=== PATIENT | female | born 2000 | race Two or more races ===

== ENCOUNTER 2025-02-01 09:39 | Emergency (ER) | payer BC, MEDICAID, SELFPAY ==
[2025-02-01 09:39] VITALS: BMI 18.6
[2025-02-01 09:44] VITALS: BP 126/84; PULSE 94; RESP 18; TEMP 36.9; O2SAT 98
--- NOTE | 2025-02-01 10:22 | PD.EDEAR ---
ED Ear RME/HPI General Chief complaint: Ear Stated complaint: LEFT EAR INFECTION Time Seen by Provider: 02/01/25 09:46 Arrival date/time: 02/01/25 09:39 This is a 24-year-old female that comes in with complaints of otitis externa that was diagnosed approximately 3 days ago. Patient was placed on Ciprodex drops. Patient states that medication is not helping her. Patient states it still hurting her. Patient denies any other complaints. Related Data Home Medications ?Medication ?Instructions ?Recorded ?Confirmed vitamin-ferrous fumarate 1 tab PO QDAY 02/08/22 03/27/24 28 mg iron-folic acid 800 mcg tablet ( Vitamins with Minerals) Previous Rx's ?Medication ?Instructions ?Recorded docusate sodium 100 mg capsule 100 mg PO BID #60 caps 03/28/24 (Colace) ibuprofen 800 mg tablet 800 mg PO Q6H PRN pain #120 tabs 03/28/24 lanolin 50 % topical ointment 1 applic topical TID PRN skin 03/28/24 irritation #15 tubes cephalexin 500 mg capsule 500 mg PO BID #10 caps 04/02/24 Allergies Allergy/AdvReac Type Severity Reaction Status Date / Time No Known Allergies Allergy Verified 02/01/25 09:41 Review of Systems Review of Systems Systems Reviewed: All systems reviewed, normal except as documented Past Medical History Past Medical History NEUROLOGIC: Negative Neurological Disorders CARDIAC: Positive Hypertension (father of pt); Negative Cardiac Disorders, Myocardial Infarction, Cardiac Arrhythmia, Atrial Fibrillation, Angina, Heart Murmur, Coronary Artery Disease, Atherosclerotic Heart Disease, Peripheral Vascular Disease, Hypercholesterolemia, Aneurysm, Congestive Heart Failure, Congenital Heart Disease, Valvular Heart Disease, Rheumatic Fever, Cardiomyopathy, Edema, Pericarditis, Cellulitis, Deep Vein Thrombosis, Hypotension or Varicose Veins RESPIRATORY: Negative Chronic Obstructive Pulmonary Disease (COPD) GASTROINTESTINAL: Negative Gastrointestinal Disorders GENITOURINARY: Negative Genitourinary Disorders or Renal Disease REPRODUCTIVE: Positive Previous Pregnancies; Negative Pelvic Inflammatory Disease MUSCULOSKELETAL: Negative Musculoskeletal Disorders ENDOCRINE: Positive Diabetes Mellitus Type 2 (father of pt); Negative Endocrine Disorders, Diabetes Mellitus Type 1, Hypoglycemia, Gaby's Syndrome, Collier's Disease, Hyperthyroidism, Hypothyroidism, Parathyroid Disease, Pituitary Disease, Systemic Lupus Erythematosus, Syndrome of Inappropriate Antidiuretic Hormone (SIADH), Adrenal Disease or Graves' Disease HEMATOLOGIC: Negative Blood Disorders OTHER HISTORY: Positive Blood Transfusions; Negative Autoimmune Disease, Blood Transfusion Reaction, Anesthesia Reactions, Organ Transplant, MRSA, Chicken Pox, Clostridium Difficile or Cancer Family History FAMILY HISTORY: Positive Family Cardiac Disorders; Negative Family Psychiatric Problems, Family Respiratory Disorders, Family Gastrointestinal Problems, Family Cancer, Family Surgery or Family Anesthesia Reaction Surgical History SURGICAL: Negative Pacemaker, Endocrine Surgery, Ear Surgery, Abdominal Surgery, Nephrectomy, Joint Replacement, Neurologic Surgery, Mastectomy, Lumpectomy, Hysterectomy, Tubal Ligation, Section or Organ Transplant Social History SMOKING STATUS: Never smoker SECOND HAND EXPOSURE: No ED Exam Narrative Physical exam: VITAL SIGNS: Reviewed. GENERAL APPEARANCE: Alert and interactive, follows commands, no acute distress, HEAD AND FACE: Non-traumatic. ENT: PERRL, conjuctiva pink and clear, eyelid no trauma, Mucous membrane moist. tm erythemic bulging, ear canal swollen NECK: Supple, nontender, no nuchal rigidity. CHEST: No tenderness, no crepitus, no paradoxical movement, no retractions. LUNGS: Clear, well ventilated, symmetric, no rales, no wheezing, no rhonchi, no stridor, good breath sounds bilaterally. HEART: Regular rate, regular rhythm, no murmur, no gallops. ABDOMEN: Soft, nondistended, no guarding, nontender, no rebound, no masses, NEUROLOGICAL: Gross motor function intact sensory function intact, Appropriate for age. MUSCULOSKELETAL: low back nontender, full range of motion. EXTREMITIES: No redness no swelling no skin breakdown on bilateral foot and leg. Distal neurovascular status intact bilateral foot SKIN: Color pink, dry, no rash, no lacerations, no abrasions, no contusions. Course Quality Measures none Orders Category Date Time Status Acetaminophen Tab [Tylenol ES Tab] Med 02/01/25 10:22 Discontinued 1,000 mg PO X1 ONE Ibuprofen Tab [Motrin Tab] Med 02/01/25 10:22 Discontinued 800 mg PO X1 ONE cefTRIAXone [Rocephin] 1,000 mg Med 02/01/25 10:22 Discontinued Lidocaine 1% 20 ml [Xylocaine 1% 20 ML] 2.1 ml IM X1 Vital Signs Vital signs: Vital Signs Temperature 98.4 F 02/01/25 09:44 Pulse Rate 94 02/01/25 09:44 Respiratory Rate 18 02/01/25 09:44 Blood Pressure 126/84 02/01/25 09:44 Pulse Oximetry (%) 98 02/01/25 09:44 Oxygen Delivery Method Room Air 02/01/25 09:44 Ear MDM Narrative MDM Narrative:: After looking in the ear it does appear patient has a otitis externa but she likely also has otitis media. Will treat. Patient given a dose of Rocephin here in the emergency room. Will send patient home with Augmentin as well. Instructed patient to take Augmentin and the Ciprodex drops. Patient is told to follow-up with primary provider in 1 to 2 days. Kmak to the emergency room symptoms change or worsen Patient data External records reviewed:: [facility] previous records Clinical information provided by:: patient Social determinants that could affect healthcare access:: none Patient has the following chronic illnesses:: none How is presenting disease/condition affected by chronic disease/condition?: no chronic disease Evaluation data The following diagnostics were reviewed and interpreted by me:: other (specify) (none) Lab and/or radiology exams considered but not ordered:: none Interpretation Summary: see note Medications / Prescriptions Medications or Prescriptions considered but not ordered:: none Medication administrations:: Medication Administration History Discontinued Medications Acetaminophen (Acetaminophen 500 Mg Tablet) 1,000 mg PO X1 ONE Stop: 02/01/25 10:23 Last Admin: 02/01/25 10:36 Dose: 1,000 mg Documented By: NARESH Ceftriaxone Sodium 1,000 mg/ (Lidocaine HCl 2.1 ml) 0 mg IM X1 ONE Stop: 02/01/25 10:23 Last Admin: 02/01/25 10:37 Dose: 1,000 mg Documented By: NARESH Ibuprofen (Ibuprofen Tab 400 Mg Tablet) 800 mg PO X1 ONE Stop: 02/01/25 10:23 Last Admin: 02/01/25 10:36 Dose: 800 mg Documented By: NARESH [facility] Consultations Consultation(s) initiated? (list below): No Diagnosis Ear Differential Diagnosis: otitis externa, otitis media, foreign body in ear, ruptured TM and cerumen impaction Most likely diagnosis given after review of the tests above:: otitis media, otitis externa Admission Indicated Admission indicated?: not indicated Admission Request Was there a request for admission?: No Disposition Plan Disposition Plan: Discharge Discharge Attestation Discharge Attestation: The patient and all family members were given an opportunity to ask questions and understood the discharge instructions. Discharge instructions specifically effects, indications for sooner follow up or return to the emergency department, and the expected course of current diagnosis. Patient condition: Stable Discharge Plan Plan Patient Disposition: HOME (Self Care) Patient condition on transfer: Stable Prescriptions/Referrals Prescriptions/Med Rec: No Action vit-iron fum-folic ac [ Vitamin with Minerals] 28 mg iron- 800 mcg Tablet 1 tab PO QDAY ibuprofen 800 mg tablet 800 mg PO Q6H MDD 4 PRN (Reason: pain) Qty: 120 0RF docusate sodium [Colace] 100 mg capsule 100 mg PO BID Qty: 60 0RF lanolin 50 % ointment 1 applic topical TID PRN (Reason: skin irritation) Qty: 15 0RF cephalexin 500 mg capsule 500 mg PO BID Qty: 10 0RF Problem List Clinical Impression: Otitis externa, Otitis media Patient/Caregiver Discharge Instructions Discharge Activity: activity as tolerated Education Materials: ED Otitis Media Antibiotic ..., ED External Ear Infection (Adult) Additional Instructions: Follow up with primary provider in 1-2 days. Come back to ED if symptoms change or worsen. Continue taking eardrops and oral antibiotic Augmentin. Print Language: Citizen Of [place] Stand Alone Forms: Tracy Award Info., Patient Portal Info Letter PA/METAL FABRICATING INSPECTOR Supervising Physician PA/METAL FABRICATING INSPECTOR Supervising Physician: shane
[2025-02-01] MEDS: ACETAMINOPHEN 500 MG TABLET 1000 MG PO (10:36)
[2025-02-01] MEDS: IBUPROFEN TAB 400 MG TABLET 800 MG PO (10:36)
[2025-02-01] MEDS: cefTRIAXone 1,000 MG, LIDOCAINE 1% 20 ML 2.1 ML IM (10:37)
== END 2025-02-01 10:42 | disposition home or self-care (01) ==
LOC: SERX 10:25
PROVIDERS: Emergency Provider Family Medicine; PCP Family Medicine
DX: H66.92 Otitis media, unspecified, left ear (principal); H60.92 Unspecified otitis externa, left ear
CPT/HCPCS: 96372; 99283; J0696; J3490; A9270

== ENCOUNTER 2025-03-10 11:24 | Outpatient (AMB) | payer BC, MEDICAID, SELFPAY ==
[2025-03-10 11:48] VITALS: BP 126/75; PULSE 96; RESP 18; TEMP 36.4; O2SAT 98; BMI 34.3
--- NOTE | 2025-03-10 11:48 | AMB.OBINITIA ---
Vital Signs 03/10/25 11:48 Height 1.65 m Height Method Stated Weight 93.61 kg Weight Measurement Method Standing Scale BMI 34.3 BP 126/75 Blood Pressure Source Automatic Cuff Blood Pressure Location Left Upper Arm Position Sitting Respiration 18 Pulse 96 Pulse Source Monitor Temp 97.6 F Temp Source Oral Pulse Oximetry (%) 98 Oxygen Delivery Method Room Air Allergies/Home Meds Allergies & Medications Allergies No Known Allergies Allergy (Verified 03/25/25 08:33) Medication Reconciliation aspirin 81 mg tablet 162 mg (2 x 81 mg) PO QDAY 90 days #180 tabs 03/10/25 [Rx Confirmed 03/25/25] Intake Visit Data Collection New Patient or Established: Established Patient (seen at [facility] within 3 years) Reason for Visit:: OBI Seen by Clinical Staff ONLY (RN/MA): No Boiler Service Technician Required: No Do You Feel Safe at Home: Yes Authorities Contacted: N/A PCP or OBGYN visit in last 3 months: Yes Hx Now: Yes Are you currently on any form of Control: No Pain Present Currently: No Pain Scale Used: Dowd-Cavazos/Numerical Pain scale:: 0 Smoking Status Smoking Status: Never smoker Questionnaires Covid-19 Vaccine Questionnaire Has patient been vacinated for Covid-19 Have you been vacinated for Covid-19: Yes PHQ-9 PHQ-2 Over the last 2 weeks, how often have you been bothered by any of the following problems? 1. Little interest or pleasure in doing things: not at all 2. Feeling down, depressed, or hopeless: not at all Total score: 0 PHQ-9 3. Trouble falling or staying asleep, or sleeping too much: Not at all 4. Feeling tired or having little energy: Not at all 5. Poor appetite or overeating: Not at all 6. Feeling bad about yourself - or that you are a failure or have let yourself or your family down: Not at all 7. Trouble concentrating on things, such as reading the newspaper or watching television: Not at all 8. Moving or speaking so slowly that other people could have noticed? - Or the opposite - being so fidgety or restless that you have been moving around a lot more than usual: not at all 9. Thoughts that you would be better off or of hurting yourself in some way: Not at all Total score: 0 If you checked off any problems, how difficult have these problems made it for you to do your work, take care of things at home, or get along with other people?: not difficult at all Source: Developed by Drs. Luis Castro, Anamaria Mtz, Tereso Davalos and colleagues, with an educational makayla from [employer]. Depression screen completed yes Social History Living Situation History Marital Status: Lives With: Family Housing: House Tobacco History Smoking Status: Never smoker Second Hand Smoke Exposure: No Alcohol History Alcohol Intake: Never Domestic Abuse History Do You Feel Safe at Home: Yes History of Present Illness HPI Narrative Ingrid Rubin, a 24-year-old female with a history of chronic hypertension, presents for an initial visit. She reports her last menstrual period was on September 21, 2024. The patient states she was tracking her cycles and took tests, with her last test taken in December. She denies any positive test results at that time. Ingrid's obstetrical history includes two previous vaginal births and one miscarriage at approximately 20 weeks gestation. Her most recent delivery was on March 28, 2024, resulting in an 8-pound term . She denies after this delivery. The patient reports that her blood pressure has been good since her last , and she is no longer taking any blood pressure medications. Ingrid is currently taking vitamins. The patient denies any specific complaints or symptoms related to her current . She describes her two children as good kids who are relatively easy to manage. 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 Obstetric History: - GTPAL: G4 T2 L2 - Current : - Gestational age: 11 weeks by ultrasound - Estimated due date: September 29, 2025 - history: - Delivered a full-term infant on March 28, 2024. weight 8 pounds. Vaginal delivery. - History of one miscarriage at about 20 weeks gestation. - One other vaginal , details not provided. 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 - Education: Enrolled in upcoming [employer] program Immunizations: - Influenza: Patient needs flu vaccine, which will be recommended after 15 weeks of - COVID-19: Patient needs COVID vaccine, which is safe to receive anytime during FIELD MANAGER: Past Medical History Past Medical History: No Hx Neurological Disorders, No Hx Hypothyroidism, No Hx Hyperthyroidism, No Hx Cardiac Disorders, Yes Hx Hypertension (father of pt), No Hx Cancer, No Hx Blood Disorders, No Hx Gastrointestinal Disorders, No Hx Renal Disease, No Hx Deep Vein Thrombosis, No Hx Diabetes Mellitus Type 1, Yes Hx Diabetes Mellitus Type 2 (father of pt), No Hx Tubal Ligation and No Hx Hysterectomy OB Initial Visit OB Flowsheet OB Flowsheet Initial Weight: Not Recorded Date <del>?</del> EGA Weight BP Alb Glu CTX Pres Fundal ht FHR Mov Dilation Station Effacement Hx Notes Visit Note 03/10/25 <del>?</del> 11w 0d 93.61 kg 126/75 OBI. 11w EGA FHR noted 4 wks with labs Menstrual History Menstrual reliability: definite Flow: normal Menstrual regularity: regular Monthly: Yes Age at menarche: 14 On control pills at conception: No OB History : 4 Para: 2 Hx # Pregnancies: 0 Hx Total # of Abortions (Spontaneous & Elective): 1 # of Living Children: 2 Delivery History 1st : Child's name: NA date: 02/12/20 sex: male Gestational age at delivery (weeks): 20 Delivery type: vaginal Delivery complications: DEMISE History of depression before or after : No 2nd : Child's name: NA date: 03/05/22 sex: female Gestational age at delivery (weeks): 37 Delivery type: vaginal weight (lbs): 2721.554 g Delivery complications: NA History of depression before or after : No 3rd : Child's name: NA date: 03/28/24 sex: female Gestational age at delivery (weeks): 40 Delivery type: vaginal weight (lbs): 3628.739 g Delivery complications: NA History of depression before or after : No Infection History & Risk Evaluation History of STDs: none HIV risk evaluation: low risk Hepatitis B risk evaluation: low risk Patient or partner has history of Genital Herpes: No Varicella/chicken pox status: immunized Genetic Screening & History Genetic Screening/Teratology Counseling - Includes patient, baby's father, or anyone in either family with: 1. Patient's age 35 years or older as of estimated date of delivery: No 2. Thalassemia (Salvadorean, German, Mediterranean, or Background); MCV less than 80: No 3. Neural Tube Defect (Meningomyelocele, Spina Bifida, or Anencephaly): No 4. Congenital Heart Defect: No 5. Down Syndrome: No 6. Hans-Sachs (Ashkenazi Jew, Cajun, Kyrgyz Magnet): No 7. Tim Disease (Ashkenazi Jew): No 8. Familial Dysautonomia (Ashkenazi Jew): No 9. Sickle Cell Disease or Trait (): No 10. Hemophilia or other blood disorders: No 11. Muscular Dystrophy: No 12. Cystic Fibrosis: No 13. [place]'s Chorea: No 14. Mental Retardation/Autism: No 15. Other inherited genetic or chromosomal disorder: No 16. Maternal Metabolic Disorder (EG,TYPE 1 Diabetes, PKU): No 17. Patient or baby's father had a child with defects not listed above: No 18. Recurrent loss or a stillbirth: No 19. Medications (including supplements, vitamins, herbs or otc drugs)/illicit/recreational drugs/alcohol since last menstrual period: No 20. Any other: No Infection History 1. Live with someone with TB or exposed to TB: No 2. Rash or viral illness since last menstrual period: No 3. Hepatitis B,C: No Other (see comments) Source: [employer] Office Procedures OB Clinic LOC & Office Proc's Nursing/Assessment Patient Status: Established Patient OB Clinic Nursing Assessment: Medication Reconciliation, Update PMH in EMR and Vital Signs OB Clinic Coordination of Care: Education Complex Pt/Fam, Consent,records obtained, informed consent, Lab and Imaging orders and Staff clarify orders Special Needs: Heart tones Established Patient Charge Established Patient Point Assignment: 110 Established Patient Point Charge: EP Level 3 (80-115) Assessment & Plan Diagnosis / Problem List (1) Supervision of high risk , unspecified, first trimester: Status: Acute (2) Uterine size date discrepancy: Status: Acute Plan Intrauterine , 11 weeks 0 days Plan: - Order initial panel and pre-eclampsia baseline labs - Schedule formal ultrasound in radiology for dating confirmation - Provide genetic screening form for patient consideration - Start aspirin at 13-14 weeks gestation - Continue vitamins Chronic hypertension Plan: - Monitor blood pressure throughout - Baseline pre-eclampsia panel ordered as part of initial labs Immunizations Plan: - Advise COVID-19 vaccine safe at any time during - Recommend delaying flu vaccine until available (typically early April) - Provide letter stating early status and recommendation to receive vaccines after 15 weeks gestation - Instruct patient to obtain vaccines at pharmacy when appropriate
== END 2025-03-10 15:47 | disposition home or self-care (01) ==
LOC: HODSOBC 11:24
PROVIDERS: Supervising Provider Obstetrics & Gynecology; Visit Provider Obstetrics & Gynecology
DX: O09.891 Supervision of other high risk pregnancies, first trimester (principal); O26.841 Uterine size-date discrepancy, first trimester; O10.911 Unspecified pre-existing hypertension complicating pregnancy, first trimester; Z3A.11 11 weeks gestation of pregnancy
CPT/HCPCS: 99213; G0463

== ENCOUNTER → 2025-03-10 | Outpatient (CLI) | payer BC, MEDICAID, SELFPAY ==
--- NOTE | 2025-03-10 16:10 | XR_ITS ---
Examination: Complete OB ultrasound, less than 14 weeks, transabdominal Date and time of exam: March 10, 2025, 1620 hours INDICATIONS: Irregular heavy menses months Technique: Obstetrical ultrasound images less than 14 weeks performed via transabdominal imaging Findings: A normal shaped single intrauterine gestation is present in the uterus. CRL 5.4 cm and corresponds to 12 weeks 0 day gestational age. Cardiac motion 182 bpm Ultrasonographic survey of visible and placental structures unremarkable. Amniotic fluid volume appears appropriate for this estimated gestational age. Right ovary 2.8 cm arterial flow. Left ovary 5.0 cm arterial flow. IMPRESSION: Viable intrauterine gestation 12 weeks 0 days. Recommend follow-up ultrasound to document stability of prominent left ovary.
== END | disposition home or self-care (01) ==
LOC: CDIM 16:04
PROVIDERS: Referring Provider Obstetrics & Gynecology; Visit Provider Obstetrics & Gynecology
DX: O26.849 Uterine size-date discrepancy, unspecified trimester (principal); O09.91 Supervision of high risk pregnancy, unspecified, first trimester; Z3A.12 12 weeks gestation of pregnancy
CPT/HCPCS: 76801

== ENCOUNTER 2025-03-25 08:19 | Outpatient (AMB) | payer BC, MEDICAID, SELFPAY ==
[2025-03-25 08:32] VITALS: BP 121/80; PULSE 103; RESP 17; TEMP 36.7; O2SAT 98; BMI 34.4
--- NOTE | 2025-03-25 08:32 | AMB.OBVISIT ---
Vital Signs 03/25/25 08:32 Height 1.65 m Height Method Measured Weight 93.61 kg Weight Measurement Method Standing Scale BMI 34.4 BP 121/80 Blood Pressure Source Automatic Cuff Blood Pressure Location Right Upper Arm Position Sitting Respiration 17 Pulse 103 H Pulse Source Monitor Temp 98.0 F Temp Source Temporal Artery Scan Pulse Oximetry (%) 98 Oxygen Delivery Method Room Air Allergies/Home Meds Allergies & Medications Allergies No Known Allergies Allergy (Verified 03/25/25 08:33) Medication Reconciliation aspirin 81 mg tablet 162 mg (2 x 81 mg) PO QDAY 90 days #180 tabs 03/10/25 [Rx Confirmed 03/25/25] Intake Visit Data Collection New Patient or Established: Established Patient (seen at [facility] within 3 years) Reason for Visit:: C Consent obtained for Telemed Visit: No Seen by Clinical Staff ONLY (RN/MA): No Carton Wrapper Required: No Do You Feel Safe at Home: Yes Authorities Contacted: N/A PCP or OBGYN visit in last 3 months: Yes Date of Last PCP or OBGYN visit: 03/10/25 Hx Now: Yes Are you currently on any form of Control: No Pain Present Currently: No Pain Scale Used: Dowd-Cavazos/Numerical Pain scale:: 0 Smoking Status Smoking Status: Never smoker Questionnaires Covid-19 Vaccine Questionnaire Has patient been vacinated for Covid-19 Have you been vacinated for Covid-19: Yes PHQ-9 PHQ-2 Over the last 2 weeks, how often have you been bothered by any of the following problems? 1. Little interest or pleasure in doing things: not at all PHQ-9 8. Moving or speaking so slowly that other people could have noticed? - Or the opposite - being so fidgety or restless that you have been moving around a lot more than usual: not at all Source: Developed by Drs. Luis Castro, Anamaria Mtz, Tereso Davalos and colleagues, with an educational makayla from [employer]. Social History Living Situation History Lives With: Family Housing: House Tobacco History Smoking Status: Never smoker Second Hand Smoke Exposure: No Alcohol History Alcohol Intake: Never Domestic Abuse History Do You Feel Safe at Home: Yes ROAD BOSS: Past Medical History Past Medical History: No Hx Neurological Disorders, No Hx Hypothyroidism, No Hx Hyperthyroidism, No Hx Cardiac Disorders, Yes Hx Hypertension (father of pt), No Hx Cancer, No Hx Blood Disorders, No Hx Gastrointestinal Disorders, No Hx Renal Disease, No Hx Deep Vein Thrombosis, No Hx Diabetes Mellitus Type 1, Yes Hx Diabetes Mellitus Type 2 (father of pt), No Hx Tubal Ligation and No Hx Hysterectomy Care OB Visit Log OB Flowsheet Initial Weight: Not Recorded Date <del>?</del> EGA Weight BP Alb Glu CTX Pres Fundal ht FHR Mov Dilation Station Effacement Hx Notes Visit Note 03/10/25 <del>?</del> 11w 0d 93.61 kg 126/75 OBI. 11w EGA FHR noted 4 wks with labs JUAN Calculator Estimated Delivery Date Method Current WG Current Estimate 09/29/25 LMP (Certain) 17w 0d Other Estimates 09/22/25 Ultrasound #1 18w 0d Notes Visit Date: 03/10/25 Last Updated by: Leno Landaverde MD Ultrasound (SunMar 10 2025): - heartbeat: 173 bpm (normal) - Estimated gestational age: 11 weeks 0 days - anatomy: Head and body visualized Office Procedures OB Clinic LOC & Office Proc's Nursing/Assessment Patient Status: Established Patient OB Clinic Nursing Assessment: Medication Reconciliation, Update PMH in EMR and Vital Signs OB Clinic Coordination of Care: Complex Care and Chronic Disease 1-5, Consent,records obtained, informed consent, Education Simp Pt/Fam, 4+ Authorizations needed and Results/Orders obtained Special Needs: Heart tones Established Patient Charge Established Patient Point Assignment: 135 Established Patient Point Charge: EP Level 4 (120-155) Assessment & Plan Diagnosis / Problem List (1) Uterine size date discrepancy: Status: Acute
== END 2025-03-25 09:03 | disposition home or self-care (01) ==
LOC: HODSOBC 08:19
PROVIDERS: Supervising Provider Obstetrics & Gynecology; Visit Provider Obstetrics & Gynecology
DX: O09.892 Supervision of other high risk pregnancies, second trimester (principal); O26.842 Uterine size-date discrepancy, second trimester; Z3A.17 17 weeks gestation of pregnancy
CPT/HCPCS: 99214; G0463

== ENCOUNTER 2025-04-28 15:19 | Outpatient (AMB) | payer BC, MEDICAID, SELFPAY ==
[2025-04-28 15:34] VITALS: BP 119/76; PULSE 104; RESP 20; TEMP 36.3; O2SAT 98; BMI 34.7
--- NOTE | 2025-04-28 15:34 | OBCLNT_ITS ---
Vital Signs 04/28/25 15:34 Height 1.65 m Height Method Stated Weight 94.461 kg Weight Measurement Method Standing Scale BMI 34.7 BP 119/76 Blood Pressure Source Automatic Cuff Blood Pressure Location Left Upper Arm Position Sitting Respiration 20 Pulse 104 H Pulse Source Monitor Temp 97.4 F Temp Source Oral Pulse Oximetry (%) 98 Oxygen Delivery Method Room Air Allergies/Home Meds Allergies & Medications Allergies No Known Allergies Allergy (Verified 04/28/25 15:35) Medication Reconciliation aspirin 81 mg tablet 162 mg (2 x 81 mg) PO QDAY 90 days #180 tabs 03/10/25 [Rx Confirmed 04/28/25] Intake Visit Data Collection New Patient or Established: Established Patient (seen at [facility] within 3 years) Reason for Visit:: CARE Seen by Clinical Staff ONLY (RN/MA): No Barrel And 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 1. Little interest or pleasure in doing things: not at all 2. Feeling down, depressed, or hopeless: not at all Total score: 0 PHQ-9 3. Trouble falling or staying asleep, or sleeping too much: Not at all 4. Feeling tired or having little energy: Not at all 5. Poor appetite or overeating: Not at all 6. Feeling bad about yourself - or that you are a failure or have let yourself or your family down: Not at all 7. Trouble concentrating on things, such as reading the newspaper or watching television: Not at all 8. Moving or speaking so slowly that other people could have noticed? - Or the opposite - being so fidgety or restless that you have been moving around a lot more than usual: not at all 9. Thoughts that you would be better off or of hurting yourself in some way: Not at all Total score: 0 Source: Developed by Drs. Luis Castro, Anamaria Mtz, Tereso Davalos and colleagues, with an educational makayla from [employer]. 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 Medical History Past Medical History: No Hx Neurological Disorders, No Hx Hypothyroidism, No Hx Hyperthyroidism, No Hx Cardiac Disorders, Yes Hx Hypertension (father of pt), No Hx Cancer, No Hx Blood Disorders, No Hx Gastrointestinal Disorders, No Hx Renal Disease, No Hx Deep Vein Thrombosis, No Hx Diabetes Mellitus Type 1, Yes Hx Diabetes Mellitus Type 2 (father of pt), No Hx Tubal Ligation and No Hx Hysterectomy Care OB Visit Log OB Flowsheet Initial Weight: Not Recorded Date -?-?-?-?-?-?-?-?-?-?-?-?- EGA Weight BP Alb Glu CTX Pres Fundal ht FHR Mov Dilation Station Effacement Hx Notes Visit Note 03/10/25 -?-?-?-?-?-?-?-?-?-?-?-?- 11w 0d 93.61 kg 126/75 OBI. 11w EGA FHR noted 4 wks with labs 04/28/25 -?-?-?-?-?-?-?-?-?-?-?-?- 18w 0d 94.461 kg 119/76 164 - She reports feeling movements, described as flickers . - Patient mentions difficulty scheduling her anatomy scan due to conflicts with her school schedule. 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 - No complaints or concerns reported during this visit. - Order AFP test to check for neural tube defects - Schedule early glucose test at 20 week s due to history of high-risk pregnancies - Provide lab order for glucose test to be done in 2 weeks - Follow up in 4 weeks - Cleared patient for N95 mask fitting t est at school - Consider changing ultrasound appointme nt from [place] to [place] for patient convenience JUAN Calculator Estimated Delivery Date Method Current WG Current Estimate 09/29/25 LMP (Certain) 18w 5d Other Estimates 09/22/25 Ultrasound #1 19w 5d Notes Visit Date: 03/10/25 Last Updated by: Leno Landaverde MD Ultrasound (SunMar 10 2025): - heartbeat: 173 bpm (normal) - Estimated gestational age: 11 weeks 0 days - anatomy: Head and body visualized Office Procedures OB Clinic LOC & Office Proc's Nursing/Assessment Patient Status: Established Patient OB Clinic Nursing Assessment: Medication Reconciliation, Update PMH in EMR and Vital Signs OB Clinic Coordination of Care: Complex Care and Chronic Disease 1-5, Consent,records obtained, informed consent, Education Simp Pt/Fam, 1 Ins Authorization, Lab and Imaging orders, Results/Orders obtained and Staff clarify orders Special Needs: Heart tones Established Patient Charge Established Patient Point Assignment: 150 Established Patient Point Charge: EP Level 4 (120-155) Assessment & Plan Diagnosis / Problem List (1) Uterine size date discrepancy: Status: Acute (2) Supervision of high risk , unspecified, first trimester: Status: Acute
== END 2025-04-28 15:47 | disposition home or self-care (01) ==
LOC: HODSOBC 15:19
PROVIDERS: Supervising Provider Obstetrics & Gynecology; Visit Provider Obstetrics & Gynecology
DX: O09.892 Supervision of other high risk pregnancies, second trimester (principal); O26.842 Uterine size-date discrepancy, second trimester; Z3A.18 18 weeks gestation of pregnancy
CPT/HCPCS: 99214; G0463

== ENCOUNTER → 2025-05-14 | Outpatient (CLI) | payer BC, MEDICAID, SELFPAY ==
[2025-05-14 09:19] LABS: Basophils # (Auto) 0.0 Thou/mm3 (0.0-0.2); Basophils % (Auto) 0 % (0-2.5); Eosinophils # (Auto) 0.1 Thou/mm3 (0.0-0.5); Eosinophils % (Auto) 2 % (0-10); Hematocrit 35.2 % (36.0-46.0); Hemoglobin 12.4 g/dL (12.0-16.0); Immature Granulocytes Auto 0.03 Thou/mm3 (0.00-0.00); Lymphocytes # (Auto) 1.7 Thou/mm3 (1.0-4.8); Lymphocytes % (Auto) 20 % (10-50); Mean Corpuscular HGB Conc 35.2 g/dl (31.0-37.0); Mean Corpuscular Hemoglobin 31.9 pg (25.0-35.0); Mean Corpuscular Volume 91 fL (80-100); Monocytes # (Auto) 0.4 Thou/mm3 (0.0-0.8); Monocytes % (Auto) 4 % (0-12); Neutrophils # (Auto) 6.5 Thou/mm3 (1.8-7.7); Neutrophils % (Auto) 74 % (37-80); Nucleated Red Blood Cell # 0.00 Thou/mm3 (0.00-0.00); Nucleated Red Blood Cell % 0 /100 WBC (0); Platelet Count 224 Thou/mm3 (140-440); RDW Standard Deviation 42.7 fL (36.4-46.3); Red Blood Count 3.89 Miln/mm3 (4.00-5.20); White Blood Count 8.8 Thou/mm3 (3.6-11.0)
[2025-05-14 09:40] LABS: Glucose,1 Hour PP 50gm Dose 154 mg/dL (80-140)
[2025-05-14 09:48] LABS: Rubella, IgG Antibody Reactive (Immune)
[2025-05-14 09:53] LABS: Alanine Aminotransferase 8 U/L (10-49); Albumin, Serum 3.7 gm/dL (3.5-5.0); Albumin/Globulin Ratio 1.5 (1.2-2.2); Alkaline Phosphatase 49 U/L (46-116); Anion Gap 11 (7-16); Aspartate Amino Transferase 11 U/L (0-34); BUN/Creatinine Ratio 12 Ratio (12-20); Bilirubin,Total 0.3 mg/dL (0.3-1.2); Blood Urea Nitrogen 6 mg/dL (9-23); Calcium 8.8 mg/dL (8.3-10.6); Calcium (Corrected) 9.0 mg/dL (8.5-10.1); Carbon Dioxide 22.5 mMol/L (20.0-31.0); Chloride 106 mMol/L (98-107); Creatinine (Component) 0.5 mg/dL (0.6-1.3); Globulin 2.4 gm/dL (2.3-3.5); Glucose 153 mg/dL (74-106); LDH (Lactate Dehydrogenase) 127 U/L (120-246); Osmolality,Calculated 278 (275-295); Potassium 3.5 mMol/L (3.4-5.1); Sodium 139 mMol/L (136-145); Total Protein 6.1 gm/dL (5.7-8.2); Uric Acid 4.4 mg/dL (3.1-7.8); eGFR > 60 See Note
[2025-05-14 09:58] LABS: Syphilis Nonreactive (Nonreactive)
[2025-05-19 11:18] LABS: HCV RNA, PCR <15 NOT DETECTED IU/mL; Hepatitis B Virus DNA* NOT DETECTED
[2025-05-19 14:12] LABS: HCV RNA, PCR Log IU <1.18 NOT DETECTED Log IU/mL; Hepatitis B DNA PCR NOT DETECTED Log IU/mL; IgG, Serum* 978 mg/dL (600-1640)
== END | disposition home or self-care (01) ==
LOC: COPL 07:27
PROVIDERS: PCP Family Medicine; Referring Provider Obstetrics & Gynecology; Visit Provider Obstetrics & Gynecology
DX: O99.810 Abnormal glucose complicating pregnancy (principal); O09.91 Supervision of high risk pregnancy, unspecified, first trimester; Z3A.00 Weeks of gestation of pregnancy not specified
CPT/HCPCS: 36415; 80053; 81001; 82784; 82950; 83615; 84550; 85025; 86762; 86780; 86850; 86900; 86901; 87086; 87491; 87517; 87522; 87591; 87661

== ENCOUNTER 2025-06-04 11:25 | Outpatient (AMB) | payer BC, MEDICAID, SELFPAY ==
[2025-06-04 11:30] VITALS: BP 135/78; PULSE 99; RESP 18; TEMP 36.2; O2SAT 98; BMI 35.3
--- NOTE | 2025-06-04 11:30 | AMB.OBVISIT ---
Vital Signs 06/04/25 11:30 Height 1.65 m Height Method Stated Weight 96.162 kg Weight Measurement Method Standing Scale BMI 35.3 BP 135/78 H Blood Pressure Source Automatic Cuff Blood Pressure Location Left Upper Arm Position Sitting Respiration 18 Pulse 99 Pulse Source Monitor Temp 97.2 F Temp Source Oral Pulse Oximetry (%) 98 Oxygen Delivery Method Room Air Allergies/Home Meds Allergies & Medications Allergies No Known Allergies Allergy (Verified 06/04/25 11:34) Medication Reconciliation aspirin 81 mg tablet 162 mg (2 x 81 mg) PO QDAY 90 days #180 tabs 03/10/25 [Rx Confirmed 06/04/25] Intake Visit Data Collection New Patient or Established: Established Patient (seen at [facility] within 3 years) Reason for Visit:: OBC Seen by Clinical Staff ONLY (RN/MA): No Funeral Home General Manager Required: No Do You Feel Safe at Home: Yes Authorities Contacted: N/A PCP or OBGYN visit in last 3 months: Yes ([id number]) Date of Last PCP or OBGYN visit: 04/27/25 Hx Now: Yes Are you currently on any form of Control: No Pain Present Currently: No Pain Scale Used: Dowd-Cavazos/Numerical Pain scale:: 0 Smoking Status Smoking Status: Never smoker Immunizations Flu Vaccine in the Last 12 Months: No Flu Vaccine Exclusion Criteria: No Exclusion Criteria Questionnaires Covid-19 Vaccine Questionnaire Has patient been vacinated for Covid-19 Have you been vacinated for Covid-19: No PHQ-9 PHQ-2 Over the last 2 weeks, how often have you been bothered by any of the following problems? 1. Little interest or pleasure in doing things: not at all 2. Feeling down, depressed, or hopeless: not at all Total score: 0 PHQ-9 3. Trouble falling or staying asleep, or sleeping too much: Not at all 4. Feeling tired or having little energy: Not at all 5. Poor appetite or overeating: Not at all 6. Feeling bad about yourself - or that you are a failure or have let yourself or your family down: Not at all 7. Trouble concentrating on things, such as reading the newspaper or watching television: Not at all 8. Moving or speaking so slowly that other people could have noticed? - Or the opposite - being so fidgety or restless that you have been moving around a lot more than usual: not at all 9. Thoughts that you would be better off or of hurting yourself in some way: Not at all Total score: 0 If you checked off any problems, how difficult have these problems made it for you to do your work, take care of things at home, or get along with other people?: not difficult at all Source: Developed by Drs. Luis Castro, Anamaria Mtz, Tereso Davalos and colleagues, with an educational makayla from [employer]. 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 Medical History Past Medical History: No Hx Neurological Disorders, No Hx Hypothyroidism, No Hx Hyperthyroidism, No Hx Cardiac Disorders, Yes Hx Hypertension (father of pt), No Hx Cancer, No Hx Blood Disorders, No Hx Gastrointestinal Disorders, No Hx Renal Disease, No Hx Deep Vein Thrombosis, No Hx Diabetes Mellitus Type 1, Yes Hx Diabetes Mellitus Type 2 (father of pt), No Hx Tubal Ligation and No Hx Hysterectomy Care OB Visit Log OB Flowsheet Initial Weight: Not Recorded Date <del>?</del> EGA Weight BP Alb Glu CTX Pres Fundal ht FHR Mov Dilation Station Effacement Hx Notes Visit Note 03/10/25 <del>?</del> 11w 0d 93.61 kg 126/75 OBI. 11w EGA FHR noted 4 wks with labs 03/25/25 <del>?</del> 13w 1d 93.61 kg 121/80 175 All labs reviewed. No complaints MFM referral started. Return in 4 weeks. 1st trimester precautions 04/28/25 <del>?</del> 18w 0d 94.461 kg 119/76 164 - She reports feeling movements, described as flickers . - Patient mentions difficulty scheduling her anatomy scan due to conflicts with her school schedule. 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 - No complaints or concerns reported during this visit. - Order AFP test to check for neural tube defects - Schedule early glucose test at 20 weeks due to history of high-risk pregnancies - Provide lab order for glucose test to be done in 2 weeks - Follow up in 4 weeks - Cleared patient for N95 mask fitting test at school - Consider changing ultrasound appointment from [place] to [place] for patient convenience 06/04/25 <del>?</del> 23w 2d 96.162 kg 135/78 absent unstable 24 159 active - She reports blood pressure elevation with current reading of 135/78, increased from previous reading of 119/60. - Patient admits to non-adherence with aspirin therapy, stating she did not take aspirin today. - She reports recent exposure to someone with shingles and denies history of chickenpox. - Patient visited [facility] in [place] approximately 2 weeks ago and was told no additional appointment was needed. - She completed glucose testing at [facility] as requested. - Patient reports baby is active. - Monitor blood pressure twice daily; call if it exceeds 160/110 - Take aspirin daily - Hydrate more - Will call the lab to retrieve one-hour glucose tolerance results and get back to patient - If glucose is elevated, will need a 3-hour test - Be careful with diet starting now - Follow up in 4 weeks JUAN Calculator Estimated Delivery Date Method Current WG Current Estimate 09/29/25 LMP (Certain) 24w 0d Other Estimates 09/22/25 Ultrasound #1 25w 0d Notes Visit Date: 06/04/25 Last Updated by: Leno Landaverde MD - Ultrasound (approximately 05/21/2025, [facility]): - heart rate: 159 bpm (normal) - weight: 457 grams (75th percentile) - Cervical length: >3 cm - position: Low-lying Visit Date: 03/10/25 Last Updated by: Leno Landaverde MD Ultrasound (SunMar 10 2025): - heartbeat: 173 bpm (normal) - Estimated gestational age: 11 weeks 0 days - anatomy: Head and body visualized Office Procedures OBC Clinic LOC & Office Proc's Nursing/Assessment Patient Status: Established Patient OB Clinic Nursing Assessment: Medication Reconciliation, Update PMH in EMR and Vital Signs OB Clinic Coordination of Care: Consent,records obtained, informed consent, Lab and Imaging orders, Results/Orders obtained and Staff clarify orders Special Needs: Heart tones Established Patient Charge Established Patient Point Assignment: 95 Established Patient Point Charge: EP Level 3 (80-115) Assessment & Plan Diagnosis / Problem List (1) Abnormal glucose affecting : Status: Acute (2) Uterine size date discrepancy: Status: Acute (3) Supervision of high risk , unspecified, first trimester: Status: Acute Plan Problem List - Hypertension in - Abnormal glucose tolerance test - Exposure to varicella zoster virus Assessment 23-week 2-day 4 para 2011 with elevated blood pressure at 135/78 (previously 119/60) requiring monitoring. One-hour glucose tolerance test result of 153 mg/dL exceeds normal cutoff of 140, indicating abnormal glucose screening. Recent ultrasound demonstrates weight of 457 grams at 75th percentile with normal heart rate of 159 bpm. Cervical length greater than 3 cm indicates low risk for labor. Patient reports recent exposure to shingles but denies history of chickenpox. Laboratory studies from 05/14 show normal liver and kidney function. Plan - Monitor blood pressure twice daily; call if it exceeds 160/110 - Take aspirin daily - Hydrate more - Will call the lab to retrieve one-hour glucose tolerance results and get back to patient - If glucose is elevated, will need a 3-hour test - Be careful with diet starting now - Follow up in 4 weeks 1. Progress Reviewed gestational age (23 weeks 2 days), growth (457 grams, 75th percentile), and heart rate (159 bpm, normal). Planned frequent visits (every 4 weeks, then will increase frequency as progresses). 2. Instructed patient to monitor movements and report decreases immediately. 3. Testing Counseled on routine third-trimester labs per guidelines. Discussed potential need for ultrasound or monitoring based on risk factors. One-hour glucose tolerance test completed with results pending (cutoff 140, previous glucose 153). 4. Preeclampsia Precaution Educated on preeclampsia signs: severe headache, vision changes, right upper quadrant pain, sudden swelling. Advised urgent reporting of symptoms and discussed blood pressure monitoring (currently elevated at 135/78, monitor twice daily, call if exceeds 160/110). 5. Labor Precautions Reviewed labor signs: regular contractions, pelvic pressure, back pain, bleeding, or fluid leakage. Instructed to seek immediate care for these symptoms. Cervix more than 3 cm indicates low risk for labor. 6. Lifestyle and Delivery Preparation Reinforced vitamins (aspirin compliance discussed), nutrition (careful with diet due to glucose concerns), and safe activity. Discussed plan, pain management, and . Advised on labor preparation (e.g., hospital bag) and expectations. 7. Psychosocial Support Assessed emotional well-being and offered resources for mental health or parenting support.
== END 2025-06-04 11:56 | disposition home or self-care (01) ==
LOC: HODSOBC 11:25
PROVIDERS: Supervising Provider Obstetrics & Gynecology; Visit Provider Obstetrics & Gynecology
DX: O09.892 Supervision of other high risk pregnancies, second trimester (principal); O26.842 Uterine size-date discrepancy, second trimester; O13.2 Gestational [pregnancy-induced] hypertension without significant proteinuria, second trimester; O99.810 Abnormal glucose complicating pregnancy; Z3A.23 23 weeks gestation of pregnancy; Z20.828 Contact with and (suspected) exposure to other viral communicable diseases
CPT/HCPCS: 99213; G0463

== ENCOUNTER → 2025-06-30 | Outpatient (CLI) | payer BC, MEDICAID, SELFPAY ==
[2025-06-30 10:04] LABS: Glucose,Fasting Gestational 91 mg/dL (70-120)
[2025-06-30 11:08] LABS: Glucose 1 Hour, Gest 132 mg/dL (50-190)
[2025-06-30 12:24] LABS: Glucose 2 Hour,Gest 102 mg/dL (50-165)
[2025-06-30 13:32] LABS: Glucose 3 Hour, Gest 97 mg/dL (50-145)
== END | disposition home or self-care (01) ==
PROVIDERS: PCP Family Medicine; Referring Provider Obstetrics & Gynecology; Visit Provider Obstetrics & Gynecology
DX: O99.810 Abnormal glucose complicating pregnancy (principal)
CPT/HCPCS: 36415; 82951; 82952

== ENCOUNTER 2025-07-08 10:30 | Outpatient (AMB) | payer BC, MEDICAID, SELFPAY ==
[2025-07-08 10:59] VITALS: BP 111/77; PULSE 101; RESP 18; TEMP 36.5; O2SAT 97; BMI 35.3
--- NOTE | 2025-07-08 10:59 | OBCLNT_ITS ---
Vital Signs 07/08/25 10:59 Height 1.65 m Height Method Stated Weight 96.218 kg Weight Measurement Method Standing Scale BMI 35.3 BP 111/77 Blood Pressure Source Automatic Cuff Blood Pressure Location Right Upper Arm Position Sitting Respiration 18 Pulse 101 H Pulse Source Monitor Temp 97.7 F Temp Source Temporal Artery Scan Pulse Oximetry (%) 97 Oxygen Delivery Method Room Air Allergies/Home Meds Allergies & Medications Allergies No Known Allergies Allergy (Verified 07/08/25 21:46) Medication Reconciliation aspirin 81 mg tablet 162 mg (2 x 81 mg) PO QDAY 90 days #180 tabs 03/10/25 [Rx Confirmed 07/08/25] vit no.95-ferrous fumarate 28 mg-folic acid 800 mcg tablet () 1 tab PO QDAY 07/08/25 [History Confirmed 07/08/25] Immunizations Immunizations Flu Vaccine in the Last 12 Months: No Flu Vaccine Exclusion Criteria: No Exclusion Criteria Care OB Visit Log OB Flowsheet Initial Weight: Not Recorded Date -?-?-?-?-?-?-?-?-?-?-?-?- EGA Weight BP Alb Glu CTX Pres Fundal ht FHR Mov Dilation Station Effacement Hx Notes Visit Note 03/10/25 -?-?-?-?-?-?-?-?-?-?-?-?- 11w 0d 93.61 kg 126/75 OBI. 11w EGA FHR noted 4 wks with labs 03/25/25 -?-?-?-?-?-?-?-?-?-?-?-?- 13w 1d 93.61 kg 121/80 175 All labs reviewed. No complaints MFM referral started. Return in 4 weeks. 1st trimester precautions 04/28/25 -?-?-?-?-?-?-?-?-?-?-?-?- 18w 0d 94.461 kg 119/76 164 - She reports feeling movements, described as flickers . - Patient mentions difficulty scheduling her anatomy scan due to conflicts with her school schedule. 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 - No complaints or concerns reported during this visit. - Order AFP test to check for neural tube defects - Schedule early glucose test at 20 week s due to history of high-risk pregnancies - Provide lab order for glucose test to be done in 2 weeks - Follow up in 4 weeks - Cleared patient for N95 mask fitting t est at school - Consider changing ultrasound appointme nt from [place] to [place] for patient convenience 06/04/25 -?-?-?-?-?-?-?-?-?-?-?-?- 23w 2d 96.162 kg 135/78 absent unstable 24 159 active - She reports blood pressure elevation with current reading of 135/78, increased from previous reading of 119/60. - Patient admits to non-adherence with a spirin therapy, stating she did not take aspirin today. - She reports recent exposure to someone with shingles and denies history of chickenpox. - Patient visited [facility] in [place] approximately 2 weeks ago and was told no additional appointment was needed. - She completed glucose testing at [facility] as requested. - Patient reports baby is active. - Monitor blood pressure twice daily; call if it exceeds 160/110 - Take aspirin daily - Hydrate more - Will call the lab to retrieve one-hour glucose tolerance results and get back to patient - If glucose is elevated, will need a 3- hour test - Be careful with diet starting now - Follow up in 4 weeks 07/08/25 -?-?-?-?-?-?-?-?-?-?-?-?- 28w 1d 96.218 kg 111/77 absent unstable 29 145 active - She reports pelvic pressure that started 2 weeks ago. - Yesterday while showering, she noticed feeling super swollen in the pelvic area. - She has been experiencing discharge bu t believes it might be normal. - Denies infection symptoms. - Yesterday at work, she experienced epi sodes of feeling super hot with dizziness. - Describes the sensation as coming fr om her chest area and going to the back of her head. - She works at [employer] which requires pr olonged standing. - Currently working 4 days per week wi th regular breaks. - She reports staying hydrated. - She is currently taking aspirin as prescribed. - Continue aspirin therapy - Monitor blood pressure when experienci ng hot flashes/dizziness episodes using personal blood pressure cuff - Elevate feet when lying down to help w ith varicose vein drainage - Wear soft underwear without seams to p revent skin cuts in varicose vein areas - Continue dietary restrictions, avoidin g very sweet foods - Follow up in 4 weeks - Ultrasound at 34-35 weeks to check fet al growth - Consider earlier work cessation if pro longed standing becomes uncomfortable, with physician documentation available as needed JUAN Calculator Estimated Delivery Date Method Current WG Current Estimate 09/29/25 LMP (Certain) 28w 3d Other Estimates 09/22/25 Ultrasound #1 29w 3d Notes Visit Date: 06/04/25 Last Updated by: Leno Landaverde MD - Ultrasound (approximately 05/21/2025, [facility]): - heart rate: 159 bpm (normal) - weight: 457 grams (75th percentile) - Cervical length: >3 cm - position: Low-lying Visit Date: 03/10/25 Last Updated by: Leno Landaverde MD Ultrasound (SunMar 10 2025): - heartbeat: 173 bpm (normal) - Estimated gestational age: 11 weeks 0 days - anatomy: Head and body visualized Office Procedures OBC Clinic LOC & Office Proc's Nursing/Assessment Patient Status: Established Patient OB Clinic Nursing Assessment: Medication Reconciliation, Update PMH in EMR and Vital Signs OB Clinic Coordination of Care: Complex Care and Chronic Disease 1-5, Education Complex Pt/Fam, Consent,records obtained, informed consent, Lab and Imaging orders, Results/Orders obtained and Staff clarify orders Special Needs: Heart tones Established Patient Charge Established Patient Point Assignment: 140 Established Patient Point Charge: EP Level 4 (120-155) Assessment & Plan Diagnosis / Problem List (1) Abnormal glucose affecting : Status: Acute (2) Uterine size date discrepancy: Status: Acute Plan Problem List - Preeclampsia - Hypertension in - Varicose veins Assessment 28-week and 1-day patient with history of preeclampsia in prior , currently experiencing elevated blood pressure (135/70 at last visit on 06-04-2025). Patient reports pelvic pressure starting 2 weeks ago and swelling noted yesterday during shower, with examination revealing varicose veins likely secondary to venous stasis from and aspirin use. Patient experiencing episodes of hot flashes with associated dizziness described as sensation starting centrally and radiating to back of head, consistent with hormonal surges. Three-hour glucose tolerance test results were within normal limits despite elevated one-hour glucose. Patient works at [employer] with prolonged standing which may exacerbate venous issues. Plan - Continue aspirin therapy - Monitor blood pressure when experiencing hot flashes/dizziness episodes using personal blood pressure cuff - Elevate feet when lying down to help with varicose vein drainage - Wear soft underwear without seams to prevent skin cuts in varicose vein areas - Continue dietary restrictions, avoiding very sweet foods - Follow up in 4 weeks - Ultrasound at 34-35 weeks to check growth - Consider earlier work cessation if prolonged standing becomes uncomfortable, with physician documentation available as needed 1. Progress Reviewed gestational age at 28 weeks and 1 day, growth, and heart rate. Planned frequent visits (every 4 weeks until 32 weeks, then every 2 weeks). 2. Instructed patient to monitor movements and report decreases immediately. 3. Testing Counseled on routine third-trimester labs per guidelines. Discussed ultrasound at 34-35 weeks to check growth. 4. Preeclampsia Precaution Educated on preeclampsia signs: severe headache, vision changes, right upper hilda drant pain, sudden swelling. Advised urgent reporting of symptoms and discussed blood pressure monitoring due to history of preeclampsia and elevated BP (135/70 at last visit). Patient instructed to carry blood pressure cuff and check BP when experiencing hot flashes or dizziness. 5. Labor Precautions Reviewed labor signs: regular contractions, pelvic pressure, back pain, bleeding, or fluid leakage. Instructed to seek immediate care for these symptoms. 6. Lifestyle and Delivery Preparation Reinforced vitamins, nutrition (avoid very sweet things), and safe activity. Discussed work modifications due to prolonged standing at [employer] and varicose veins. Advised elevation of feet when lying down and consideration of earlier work cessation. 7. Psychosocial Support Assessed emotional well-being and offered resources for mental health or parenting support.
== END 2025-07-08 11:16 | disposition home or self-care (01) ==
LOC: HODSOBC 10:30
PROVIDERS: Absent Provider Obstetrics & Gynecology; PCP Family Medicine; Referring Provider Family Medicine; Supervising Provider Advanced Practice Midwife; Visit Provider Obstetrics & Gynecology
DX: O09.893 Supervision of other high risk pregnancies, third trimester (principal); O99.810 Abnormal glucose complicating pregnancy; O26.843 Uterine size-date discrepancy, third trimester; O16.3 Unspecified maternal hypertension, third trimester; O22.13 Genital varices in pregnancy, third trimester; Z3A.28 28 weeks gestation of pregnancy; Z87.59 Personal history of other complications of pregnancy, childbirth and the puerperium
CPT/HCPCS: 99214; G0463

== ENCOUNTER 2025-07-08 20:18 | Observation (INO) | payer BC, MEDICAID, SELFPAY ==
[2025-07-08] VITALS (22 sets, daily range): BP systolic 115–116; BP diastolic 65–75; PULSE 81–97; RESP 16–98; TEMP 37.2; O2SAT 97–99; BMI 35.4
--- NOTE | 2025-07-08 21:07 | XR_ITS ---
EXAMINATION: age complete greater than first trimester TECHNIQUE: Limited transabdominal sonographic images pelvis Labor evaluation with vaginal spotting today FINDINGS: presentation cephalic Cardiac motion 164 bpm Placenta fundal grade 1 Umbilical cord insertion seen Amniotic fluid index 13.3 cm spine maternal left Cervix 4.5 cm Ovaries obscured by bowel gas Estimated gestational age 29 weeks 0 days Estimated weight 1313 g IMPRESSION: Viable intrauterine gestation cephalic presentation Placenta fundal grade 1 no placenta previa
[2025-07-08 21:49] LABS: Collection Type, Urine Clean Catch
[2025-07-08 21:56] LABS: Bilirubin,Urine Negative (Negative); Blood,Urine 1+ (Negative); Clarity,Urine Turbid (Clear/Hazy); Color,Urine Lt-Yellow (Lt Yel-Yel); Glucose, Urine Negative (Negative); Ketones,Urine Negative (Negative); Leukocyte Esterase,Urine Positive (Negative); Nitrite,Urine Negative (Negative); PH,Urine 7.0 (5.0-7.0); Protein,Urine Negative (Neg - Trace); RBC,Urine 38 /hpf (0-3); Specific Gravity,Urine 1.020 (1.001-1.035); Squamous Epithelial Cell,Urine 22 /hpf (0-5); Urobilinogen,Urine Negative mg/dL (0.0-1.0); WBC,Urine 40 /hpf (0-5)
== END 2025-07-08 22:16 | disposition home or self-care (01) ==
PROVIDERS: Admitting Provider Obstetrics & Gynecology; Visit Provider Obstetrics & Gynecology
DX: O26.853 Spotting complicating pregnancy, third trimester (principal); Z3A.29 29 weeks gestation of pregnancy
CPT/HCPCS: 59025; 59899; 76805; 76810; 81001; 81003; 87086

== ENCOUNTER 2025-08-10 11:07 | Outpatient (AMB) | payer BC, MEDICAID, SELFPAY ==
[2025-08-10 11:37] VITALS: BP 115/78; PULSE 103; RESP 18; TEMP 36.6; O2SAT 96; BMI 35.1
--- NOTE | 2025-08-10 11:37 | OBCLNT_ITS ---
Vital Signs 08/10/25 11:37 Height 1.65 m Height Method Stated Weight 95.765 kg Weight Measurement Method Standing Scale BMI 35.1 BP 115/78 Blood Pressure Source Automatic Cuff Blood Pressure Location Left Upper Arm Position Sitting Respiration 18 Pulse 103 H Pulse Source Monitor Temp 97.9 F Temp Source Oral Pulse Oximetry (%) 96 Oxygen Delivery Method Room Air Allergies/Home Meds Allergies & Medications Allergies No Known Allergies Allergy (Verified 08/10/25 11:38) Medication Reconciliation aspirin 81 mg tablet 162 mg (2 x 81 mg) PO QDAY 90 days #180 tabs 03/10/25 [Rx Confirmed 08/10/25] vit no.95-ferrous fumarate 28 mg-folic acid 800 mcg tablet () 1 tab PO QDAY 07/08/25 [History Confirmed 08/10/25] Immunizations Immunizations Flu Vaccine in the Last 12 Months: No Flu Vaccine Exclusion Criteria: Refused by Patient Care OB Visit Log OB Flowsheet Initial Weight: Not Recorded Date -?-?--?-?-?-?-?-?-?-?-?-?- EGA Weight BP Alb Glu CTX Pres Fundal ht FHR Mov Dilation Station Effacement Hx Notes Visit Note 03/10/25 -?-?-?-?-?-?-?-?-?-?-?-?- 11w 0d 93.61 kg 126/75 OBI. 11w EGA FHR noted 4 wks with labs 03/25/25 -?-?-?-?-?-?-?-?-?-?-?-?- 13w 1d 93.61 kg 121/80 175 All labs reviewed. No complaints MFM referral started. Return in 4 weeks. 1st trimester precautions 04/28/25 -?-?-?-?-?-?-?-?-?-?-?-?- 18w 0d 94.461 kg 119/76 164 - She reports feeling movements, described as flickers . - Patient mentions difficulty scheduling her anatomy scan due to conflicts with her school schedule. 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 - No complaints or concerns reported during this visit. - Order AFP test to check for neural tube defects - Schedule early glucose test at 20 week s due to history of high-risk pregnancies - Provide lab order for glucose test to be done in 2 weeks - Follow up in 4 weeks - Cleared patient for N95 mask fitting t est at school - Consider changing ultrasound appointme nt from [place] to [place] for patient convenience 06/04/25 -?-?-?-?-?-?-?-?-?-?-?-?- 23w 2d 96.162 kg 135/78 absent unstable 24 159 active - She reports blood pressure elevation with current reading of 135/78, increased from previous reading of 119/60. - Patient admits to non-adherence with a spirin therapy, stating she did not take aspirin today. - She reports recent exposure to someone with shingles and denies history of chickenpox. - Patient visited [facility] in [place] approximately 2 weeks ago and was told no additional appointment was needed. - She completed glucose testing at [facility] as requested. - Patient reports baby is active. - Monitor blood pressure twice daily; call if it exceeds 160/110 - Take aspirin daily - Hydrate more - Will call the lab to retrieve one-hour glucose tolerance results and get back to patient - If glucose is elevated, will need a 3- hour test - Be careful with diet starting now - Follow up in 4 weeks 07/08/25 -?-?-?-?-?-?-?-?-?-?-?-?- 28w 1d 96.218 kg 111/77 absent unstable 29 145 active - She reports pelvic pressure that started 2 weeks ago. - Yesterday while showering, she noticed feeling super swollen in the pelvic area. - She has been experiencing discharge bu t believes it might be normal. - Denies infection symptoms. - Yesterday at work, she experienced epi sodes of feeling super hot with dizziness. - Describes the sensation as coming fr om her chest area and going to the back of her head. - She works at [employer] which requires pr olonged standing. - Currently working 4 days per week wi th regular breaks. - She reports staying hydrated. - She is currently taking aspirin as prescribed. - Continue aspirin therapy - Monitor blood pressure when experienci ng hot flashes/dizziness episodes using personal blood pressure cuff - Elevate feet when lying down to help w ith varicose vein drainage - Wear soft underwear without seams to p revent skin cuts in varicose vein areas - Continue dietary restrictions, avoidin g very sweet foods - Follow up in 4 weeks - Ultrasound at 34-35 weeks to check fet al growth - Consider earlier work cessation if pro longed standing becomes uncomfortable, with physician documentation available as needed 08/10/25 -?-?-?-?-?-?-?-?-?-?-?-?- 32w 6d 95.765 kg 115/78 absent cephalic 30 150 active - She reports experiencing Fito Estrada contractions with severe pain when lying down. - Pain occurs every time she lies down but is less severe when sitting up or standing. - Also experiences pain when sitting i n a cramped position. - She reports significant pain down the re related to varicose veins that were previously identified. - Patient went to [facility] 2 da ys ago for UTI and was prescribed nitrofurantoin macrocrystals, which she is currently taking. - She reports baby is active with no con tractions or other issues. - Currently taking only low-dose aspirin and the recently prescribed antibiotic. - She denies any other concerns or symptoms. - Continue low-dose aspirin therapy - Administer Tdap vaccination today - Continue nitrofurantoin macrocrystals for UTI treatment - Schedule growth ultrasound at hospital 4th floor at 35 weeks gestation to assess weight and amniotic fluid - Begin weekly monitoring at 32 we eks due to history of preeclampsia (anesthesiologist referral form to be sent) - Provide work letter for maternity [facility] e - Return for visit in 3 weeks, then transition to weekly visits - Patient instructed to call office dire ctly for -related concerns rather than seeking urgent care JUAN Calculator Estimated Delivery Date Method Current WG Current Estimate 09/29/25 LMP (Certain) 32w 6d Other Estimates 09/22/25 Ultrasound #1 33w 6d Notes Visit Date: 06/04/25 Last Updated by: Leno Landaverde MD - Ultrasound (approximately 05/21/2025, [facility]): - heart rate: 159 bpm (normal) - weight: 457 grams (75th percentile) - Cervical length: >3 cm - position: Low-lying Visit Date: 03/10/25 Last Updated by: Leno Landaverde MD Ultrasound (SunMar 10 2025): - heartbeat: 173 bpm (normal) - Estimated gestational age: 11 weeks 0 days - anatomy: Head and body visualized Office Procedures [facility] LOC & Office Proc's Nursing/Assessment Patient Status: Established Patient OB Clinic Nursing Assessment: Medication Reconciliation, Update PMH in EMR and Vital Signs OB Clinic Coordination of Care: Complex Care and Chronic Disease 1-5, Consent, records obtained, informed consent, Education Simp Pt/Fam, 1 Ins Authorization, Lab and Imaging orders, Results/Orders obtained and Staff clarify orders Special Needs: Heart tones Established Patient Charge Established Patient Point Assignment: 150 Established Patient Point Charge: EP Level 4 (120-155) Injection/Vaccine Admin Admin 1st Vaccine: Yes Immunizations diphth,pertus(acell),tetanus 2.5 Lf unit-8 mcg-5 Lf/0.5mL IM syringe Performing Provider: Leno Landaverde MD Performing Location: [facility] Administered by: Anisa Yost MA on 08/10/25 11:39 Dose Route Admin Location Dispensed Lot Number Expiration Date Pack age [facility] [place] [employer] Transformation Specialist 0.5 mL IM Right Deltoid 0.5 mL [id number] 11/07/27 [id number] [facility] VIS Given Date VIS Provided VIS Publication Date 08/10/25 Single Vaccine 24 Eligibility Eligibility Date Funding Source Public [facility] Assessment & Plan Diagnosis / Problem List (1) Supervision of high risk , unspecified, third trimester: Status: Acute Plan Problem List - at 32 weeks and 6 days gestation - Chronic hypertension - Preeclampsia - Varicose veins - Urinary tract infection - Izard Estrada contractions Assessment 34-year-old female at 32 weeks and 6 days gestation with history of chronic hypertension and preeclampsia in previous , currently experiencing Fito Estrada contractions that worsen when lying down and improve when standing or sitting upright. Patient reports significant pain from varicose veins and was recently treated for urinary tract infection with nitrofurantoin macrocrystals 2 days prior to visit. heart rate is normal at 160 beats per minute with reported normal activity and no contractions. Patient is currently taking low-dose aspirin and recently prescribed nitrofurantoin for UTI treatment. Plan - Continue low-dose aspirin therapy - Administer Tdap vaccination today - Continue nitrofurantoin macrocrystals for UTI treatment - Schedule growth ultrasound at hospital 4th floor at 35 weeks gestation to assess weight and amniotic fluid - Begin weekly monitoring at 32 weeks due to history of preeclampsia (anesthesiologist referral form to be sent) - Provide work letter for maternity leave - Return for visit in 3 weeks, then transition to weekly visits - Patient instructed to call office directly for -related concerns rather than seeking urgent care 1. Progress Reviewed gestational age at 32 weeks 6 days, growth, and heart rate of 160 bpm (normal). Planned frequent visits (every 3 weeks until next appointment, then weekly after that). 2. Instructed patient to monitor movements and report decreases immediately. 3. Testing Counseled on routine third-trimester labs per guidelines. Discussed ultrasound at 35 weeks to check baby's growth, weight, and fluid levels at hospital 4th floor. 4. Preeclampsia Precaution Educated on preeclampsia signs: severe headache, vision changes, right upper quadrant pain, sudden swelling. Advised urgent reporting of symptoms and discussed weekly monitoring due to history of preeclampsia in previous . 5. Labor Precautions Reviewed labor signs: regular contractions, pelvic pressure, back pain, bleeding, or fluid leakage. Instructed to seek immediate care for these symptoms and discussed Fito Estrada contractions patient is experiencing when lying down. 6. Lifestyle and Delivery Preparation Reinforced vitamins, nutrition, and safe activity. Discussed work restrictions and maternity leave planning with work letter to be provided. Advised on labor preparation (e.g., hospital bag) and expectations. 7. Psychosocial Support Assessed emotional well-being and offered resources for mental health or parenting support.
== END 2025-08-10 11:57 | disposition home or self-care (01) ==
LOC: HODSOBC 11:07
PROVIDERS: Supervising Provider Obstetrics & Gynecology; Visit Provider Obstetrics & Gynecology
DX: O09.893 Supervision of other high risk pregnancies, third trimester (principal); O10.913 Unspecified pre-existing hypertension complicating pregnancy, third trimester; O22.03 Varicose veins of lower extremity in pregnancy, third trimester; I83.819 Varicose veins of unspecified lower extremity with pain; O23.43 Unspecified infection of urinary tract in pregnancy, third trimester; N39.0 Urinary tract infection, site not specified; O47.03 False labor before 37 completed weeks of gestation, third trimester; Z3A.32 32 weeks gestation of pregnancy; Z87.59 Personal history of other complications of pregnancy, childbirth and the puerperium; Z23 Encounter for immunization
CPT/HCPCS: 90471; 90715; 99214; G0463